=== PATIENT | male | born 1980 | race Caucasian/White ===

== ENCOUNTER 2018-04-21 20:43 | Emergency (ER) | payer SELFPAY ==
--- NOTE | 2018-04-21 21:07 | NUR ---
PATIENT LEFT WITHOUT BEING SEEN BY DR. Sauer. NO FURTHER CARE PROVIDED FOR PATIENT.
== END 2018-04-21 21:07 | disposition left against medical advice (07) ==
LOC: MED 20:43
DX: Z53.21 Procedure and treatment not carried out due to patient leaving prior to being seen by health care provider (principal)